=== PATIENT | female | born 1980 | race Caucasian/White ===

== ENCOUNTER 2017-12-27 02:28 | Emergency (ER) | payer OTHER ==
[2017-12-27 02:49] VITALS: TEMP 97.6
--- NOTE | 2017-12-27 03:43 | ED PDOC ---
HPI: Psych/Substance Abuse Time Seen by Provider: 12/27/17 02:49 Chief Complaint (Nursing): Alcohol Ingestion Chief Complaint (Provider): Alcohol Ingestion ED Caveat: Intoxicated History/Exam Limitations: intoxication Additional Complaint(s): 37 y/o female was brought to the ED by EMS for alcohol intoxication. Patient was found in hallway in seated position. Past Medical History Reviewed: Historical Data, Nursing Documentation, Vital Signs Vital Signs: Last Vital Signs Temp 97.6 F 12/27/17 02:45 Pulse 120 H 12/27/17 02:45 Resp 18 12/27/17 02:45 BP 123/80 12/27/17 02:45 Pulse Ox 99 12/27/17 02:45 - Family History Family History: States: Unknown Family Hx - Immunization History Hx Tetanus Toxoid Vaccination: No Hx Influenza Vaccination: No Hx Pneumococcal Vaccination: No - Home Medications Home Medications: Ambulatory Orders Medication Instructions Recorded DiphenhydrAMINE [Benadryl] 25 mg PO BID #10 cap 08/01/17 Famotidine [Pepcid] 20 mg PO BID #10 tab 08/01/17 Prednisone [Deltasone] 40 mg PO DAILY #6 tablet 08/01/17 DiphenhydrAMINE [Benadryl] 25 mg PO QID #28 cap 08/09/17 Famotidine [Pepcid] 20 mg PO BID #20 tab 08/09/17 predniSONE [Prednisone] 20 mg PO BID #10 tab 08/09/17 - Allergies Allergies/Adverse Reactions: Allergies Allergy/AdvReac Type Severity Reaction Status Date / Time No Known Allergies Allergy Verified 08/09/17 15:15 Review of Systems Review Of Systems: ROS cannot be obtained secondary to pt's inabilty to answer questions. (cannot be obtained due to alcohol intoxication) Physical Exam - Reviewed Nursing Documentation Reviewed: Yes Vital Signs Reviewed: Yes - Physical Exam Appears: Negative for: Non-toxic (Patient appears toxic but no signs of trauma) Head Exam: Positive for: ATRAUMATIC, NORMAL INSPECTION, NORMOCEPHALIC Skin: Positive for: Normal Color, Warm, Dry Eye Exam: Positive for: EOMI, Normal appearance, PERRL ENT: Positive for: Normal ENT Inspection Neck: Positive for: Normal, Painless ROM, Supple Cardiovascular/Chest: Positive for: Regular Rate, Rhythm. Negative for: Murmur Respiratory: Positive for: Normal Breath Sounds. Negative for: Accessory Muscle Use, Respiratory Distress Gastrointestinal/Abdominal: Positive for: Normal Exam, Bowel Sounds, Soft. Negative for: Tenderness Back: Positive for: Normal Inspection Extremity: Positive for: Normal ROM. Negative for: Deformity Neurologic/Psych: Positive for: Alert, Oriented (Patient is intoxicated) - ECG O2 Sat by Pulse Oximetry: 99 (RA) Pulse Ox Interpretation: Normal Medical Decision Making Medical Decision Making: Time: 02:53 Initial Impression: Alcohol Intoxication Plan: Glucose, blood, POC stat 500 Patient with normal vitals, steady gait, clinically sober, family at bedside. Scribe Attestation: Documented by Stephanie Santiago acting as a scribe for Nikos Martinez MD. Scribe Attestation: All medical record entries made by the Scribe were at my direction and personally dictated by me. I have reviewed the chart and agree that the record accurately reflects my personal performance of the history, physical exam, medical decision making, and the department course for this patient. I have also personally directed, reviewed, and agree with the discharge instructions and disposition. Disposition - Clinical Impression Clinical Impression: Alcohol abuse - Disposition Referrals: Alcoholics Anonymous [Outside] Disposition: Routine/Home Disposition Time: 05:00 Condition: IMPROVED Instructions: Alcohol Abuse and Alcoholism (DC) Forms: [facility] (Greek) Print Language: UPPER SORBIAN
[2017-12-27 05:08] VITALS: BP 126/75; PULSE 86; RESP 14
[2017-12-27 19:41] VITALS: O2SAT 99
== END 2017-12-27 05:51 | disposition home or self-care (01) ==
LOC: H.ER 02:28
DX: F10.129 Alcohol abuse with intoxication, unspecified (principal)